=== PATIENT | male | born 1945 ===

== ENCOUNTER 2024-05-18 06:00 | Day surgery (SDC) | payer OTHER ==
[~2024-05-18 06:00] MED LIST: ATORVASTATIN CA80 MG; COZAAR100 MG; GLUMETZA1000 MG; HYDREA500 M1; ORGOVYX120 MG; SYNTHROID150 MCG; TAMS0.4C
[2024-05-18] MEDS ORDERED: METRONIDAZOLE/SODIUM CHLORIDE 500 MG/100 ML PIGGYBACK IV ONE (08:27)
[2024-05-18] MEDS ORDERED: CEFTRIAXONE SODIUM 2,000 MG VIAL ONE (08:27)
[2024-05-18] MEDS ORDERED: CHLORHEXIDINE GLUCONATE 120 ML BOTTLE TOP ONE ×2 (09:20→10:45)
[2024-05-18] MEDS ORDERED: DIBUCAINE 30 GM TUBE ONE (09:20)
[2024-05-18] MEDS ORDERED: BUPIVACAINE HCL/MPF 0.5% 30ML VIAL ONE (09:20)
[2024-05-18] MEDS ORDERED: LIDOCAINE HCL 1%/EPINEPHRINE 20ML VIAL IJ ONE ×2 (09:21→10:45)
[2024-05-18] MEDS ORDERED: HEMOSTATIC MATRIX 1 KIT KIT TOP ONE ×2 (09:21→10:45)
[2024-05-18] MEDS ORDERED: DIBUCAINE 30 GM TUBE RECTAL ONE (10:45)
[2024-05-18] MEDS ORDERED: CEFTRIAXONE SODIUM 2,000 MG VIAL IV SCH (10:45)
[2024-05-18] MEDS ORDERED: METRONIDAZOLE/SODIUM CHLORIDE 500 MG/100 ML PIGGYBACK IV SCH (10:45)
[2024-05-18] MEDS ORDERED: BUPIVACAINE HCL 30 ML VIAL IJ ONE (10:45)
== END 2024-05-18 16:10 | disposition home or self-care (01) ==
LOC: CIR.AMB 06:00
PROVIDERS: ATTEND Colon & Rectal Surgery
DX: K60.1 Chronic anal fissure (principal); K62.4 Stenosis of anus and rectum; K64.1 Second degree hemorrhoids; Z91.048 Other nonmedicinal substance allergy status; I10 Essential (primary) hypertension; G47.33 Obstructive sleep apnea (adult) (pediatric); E10.9 Type 1 diabetes mellitus without complications; E03.9 Hypothyroidism, unspecified